=== PATIENT | male | born 1995 | race Caucasian/White ===

== ENCOUNTER 2020-06-17 21:37 | Inpatient (IN) | payer OTHER ==
[~2020-06-17] VITALS: Ht 177.8 cm; Wt 71.0 kg
[2020-06-17 22:13] LABS: BASOPHILS % (AUTO) 0 % (0-1); EOSINOPHILS % (AUTO) 1 % (1-7); LYMPHOCYTES % (AUTO) 6 % (22-44); MEAN CORPUSCULAR HGB CONC 33.7 g/dL (33.2-36.2); MEAN PLATELET VOLUME 7.7 fL (7.4-10.4); MONOCYTES % (AUTO) 4 % (2-9); NEUTROPHILS % (AUTO) 90 % (42-75); PLATELET COUNT 280 x10^3/uL (130-400); RED BLOOD COUNT 5.62 x10^6/uL (4.38-5.82); RED CELL DISTRIBUTION WIDTH 14.2 % (9.4-14.8)
[2020-06-17 22:17] LABS: MD NO
[2020-06-17 22:23] LABS: ALANINE AMINOTRANSFERASE 22 U/L (12-78); ALBUMIN 4.3 g/dL (3.4-5.0); ANION GAP 5 mmol/L (5-15); CALCIUM 9.5 mg/dL (8.5-10.1); CHLORIDE 103 mmol/L (98-107); CREATININE 0.98 mg/dL (0.7-1.3)
[2020-06-17 22:25] LABS: ALKALINE PHOSPHATASE 82 U/L (45-117); BILIRUBIN,TOTAL 0.7 mg/dL (0.2-1.0); TOTAL PROTEIN 8.4 g/dL (6.4-8.2)
--- NOTE | 2020-06-17 22:39 | NUR ---
PT TO ROOM FROM LOBBY
--- NOTE | 2020-06-17 22:45 | NUR ---
First contact with patient: patient presents to ER c/o upper abd pain and nausea since 1900 last night. Patient vomited twice. Patient has a hx of SBO with NG tube placement. Patient is in NAD. Respirations even and unlabored.
[2020-06-17] MEDS ORDERED: HYDROmorphone 1 MG/ML, 1ML INJ ONE (23:12)
[2020-06-17] MEDS ORDERED: ONDANSETRON 2MG/ML, 2ML ONE (23:12)
[2020-06-17 23:13] LABS: MICROSCOPIC INDICATED
[2020-06-17] MEDS ORDERED: HYDROmorphone 1 MG/ML, 1ML INJ IVPush PRN (23:30)
[2020-06-17] MEDS ORDERED: ONDANSETRON 2MG/ML, 2ML IVPush ONE (23:30)
--- NOTE | 2020-06-18 00:10 | NUR ---
NG tube inserted in L nare. 10F.
--- NOTE | 2020-06-18 01:30 | NUR ---
Report to DIONNA Holly. Patient care transferred.
[2020-06-18] MEDS ORDERED: HEPARIN 5,000 UNITS/ML, 1ML ONE (01:39)
[2020-06-18] MEDS: SODIUM CHLORIDE 0.9% 1,000 ML IV SCH ×2 (01:45→10:13)
[2020-06-18] MEDS: HEPARIN 5,000 UNITS/ML, 1ML SQ SCH ×3 (01:45→16:39)
--- NOTE | 2020-06-18 02:22 | NUR ---
pt resting in bed, pt on monitor with vss. pt medicated per mar. pt has no current complaints
--- NOTE | 2020-06-18 03:27 | NUR ---
Break RN: patient resting in [facility] with no complaints.
--- NOTE | 2020-06-18 04:31 | NUR ---
REPORT TO SURGERY
[2020-06-18] MEDS ORDERED: FENTANYL PF 250 MCG/5ML ONE ×2 (05:04→06:33)
[2020-06-18] MEDS ORDERED: BUPIVACAINE/PF-EPI 0.5% 1:200K ONE (05:15)
[2020-06-18] MEDS ORDERED: SUCCINYLCHOLINE 20 MG/ML, 10ML ONE (05:26)
[2020-06-18] MEDS ORDERED: BUPIVACAINE/PF-EPI 0.5% 1:200K INFIL ONE (05:53)
[2020-06-18] MEDS ORDERED: PROPOFOL 10 MG/ML, 20ML ONE (05:57)
[2020-06-18] MEDS ORDERED: ROCURONIUM 10MG/ML,5ML ONE (05:57)
[2020-06-18] MEDS ORDERED: DEXAMETHASONE 4 MG/ML, 5ML ONE (05:58)
[2020-06-18] MEDS ORDERED: ONDANSETRON 2MG/ML, 2ML ONE (05:58)
[2020-06-18] MEDS ORDERED: PROMETHAZINE 25 MG/ML, 1ML IVPush PRN (06:00)
[2020-06-18] MEDS ORDERED: hydrALAzine 20 MG/ML, 1ML IV PRN (06:00)
[2020-06-18] MEDS ORDERED: LORazepam 2 MG/ML, 1ML IVPush PRN (06:00)
[2020-06-18] MEDS ORDERED: ONDANSETRON 2MG/ML, 2ML IVPush PRN (06:00)
[2020-06-18] MEDS ORDERED: METHOCARBAMOL 1,000 MG in DEXTROSE 5% 100 ML IV PRN (06:00)
[2020-06-18] MEDS ORDERED: OXYcodone 5 MG/5 ML ORAL.SOL UDC PO PRN (06:00)
[2020-06-18] MEDS ORDERED: MEPERIDINE/PF 25MG/0.5ML IVPush PRN (06:00)
[2020-06-18] MEDS ORDERED: LABETALOL 5MG/ML, 20ML IV PRN (06:00)
[2020-06-18] MEDS ORDERED: SUGAMMADEX 200 MG/2 ML IVPush ONE (06:39)
[2020-06-18] MEDS ORDERED: CEFOTETAN 1 GM ONE ×2 (06:39)
[2020-06-18] MEDS: FENTANYL PF 100 MCG/2ML IV PRN ×2 (07:02→07:23)
[2020-06-18] MEDS ORDERED: FENTANYL PF 100 MCG/2ML ONE (07:06)
[2020-06-18] MEDS ORDERED: HYDROmorphone 1 MG/ML, 1ML INJ ONE (07:07)
[2020-06-18] MEDS: HYDROmorphone 1 MG/ML, 1ML INJ IVPush PRN ×3 (07:12→07:45)
[2020-06-18] MEDS ORDERED: HYDROmorphone 2 MG/ML, 1ML ONE (07:49)
[2020-06-18 08:45] VITALS: BP 145/83
[2020-06-18] MEDS ORDERED: SCOPOLAMINE 1MG PATCH TD ONE (10:07)
[2020-06-18] MEDS: ACETAMINOPHEN 325 MG TABLET PO SCH ×3 (10:11→22:39)
[2020-06-18] MEDS: SCOPOLAMINE 1MG PATCH TD SCH (10:12)
[2020-06-18] MEDS: ONDANSETRON 2MG/ML, 2ML IVPush PRN (10:20)
[2020-06-18 12:45] VITALS: BP 102/65
[2020-06-18] MEDS: morphine SULFATE 10 MG/ML, 1ML IVPush PRN ×3 (12:53→22:39)
[2020-06-18 19:38] VITALS: BP 112/63
[2020-06-18 23:45] VITALS: BP 123/81
[2020-06-19] MEDS: HEPARIN 5,000 UNITS/ML, 1ML SQ SCH ×2 (01:36→07:54)
[2020-06-19 03:21] VITALS: BP 114/72
[2020-06-19] MEDS: morphine SULFATE 10 MG/ML, 1ML IVPush PRN ×9 (03:32→23:35)
[2020-06-19] MEDS: ONDANSETRON 2MG/ML, 2ML IVPush PRN (03:55)
[2020-06-19] MEDS: ACETAMINOPHEN 325 MG TABLET PO SCH ×4 (04:10→22:30)
[2020-06-19 06:14] LABS: BASOPHILS % (AUTO) 0 % (0-1); EOSINOPHILS % (AUTO) 0 % (1-7); LYMPHOCYTES % (AUTO) 6 % (22-44); MEAN CORPUSCULAR HEMOGLOBIN 30.3 pg (27.5-34.5); MEAN CORPUSCULAR HGB CONC 33.6 g/dL (33.2-36.2); MEAN PLATELET VOLUME 8.3 fL (7.4-10.4); MONOCYTES % (AUTO) 7 % (2-9); NEUTROPHILS % (AUTO) 86 % (42-75); PLATELET COUNT 197 x10^3/uL (130-400); RED CELL DISTRIBUTION WIDTH 14.5 % (9.4-14.8)
[2020-06-19 06:19] LABS: MD NO
[2020-06-19 06:25] LABS: CHLORIDE 103 mmol/L (98-107)
[2020-06-19 06:30] LABS: ANION GAP 6 mmol/L (5-15); CALCIUM 8.9 mg/dL (8.5-10.1); CREATININE 0.81 mg/dL (0.7-1.3)
[2020-06-19 07:35] VITALS: BP 141/93
[2020-06-19] MEDS: PROCHLORPERAZINE 5 MG/ML, 2ML IM PRN ×2 (08:35→16:44)
[2020-06-19] MEDS: D5%-0.45NACL+KCL 20MEQ 1,000 ML IV SCH ×2 (12:28→21:59)
[2020-06-19 14:00] VITALS: BP 116/70
[2020-06-19 18:49] VITALS: BP 120/75
[2020-06-19] MEDS: ENOXAPARIN 40 MG/0.4 ML SQ SCH (20:22)
[2020-06-20 00:51] VITALS: BP 137/87
[2020-06-20] MEDS: morphine SULFATE 10 MG/ML, 1ML IVPush PRN ×6 (02:38→23:07)
[2020-06-20 05:30] LABS: BASOPHILS % (AUTO) 0 % (0-1); EOSINOPHILS % (AUTO) 2 % (1-7); LYMPHOCYTES % (AUTO) 11 % (22-44); MEAN CORPUSCULAR HEMOGLOBIN 30.5 pg (27.5-34.5); MEAN CORPUSCULAR HGB CONC 33.8 g/dL (33.2-36.2); MEAN PLATELET VOLUME 7.7 fL (7.4-10.4); MONOCYTES % (AUTO) 9 % (2-9); NEUTROPHILS % (AUTO) 78 % (42-75); PLATELET COUNT 212 x10^3/uL (130-400); RED BLOOD COUNT 4.84 x10^6/uL (4.38-5.82); RED CELL DISTRIBUTION WIDTH 14.1 % (9.4-14.8)
[2020-06-20 05:35] LABS: ALBUMIN 3.1 g/dL (3.4-5.0); ANION GAP 3 mmol/L (5-15); CALCIUM 9.1 mg/dL (8.5-10.1); CHLORIDE 104 mmol/L (98-107); CREATININE 0.92 mg/dL (0.7-1.3)
[2020-06-20] MEDS: ACETAMINOPHEN 325 MG TABLET PO SCH ×4 (05:35→22:35)
[2020-06-20 05:47] LABS: MD NO
[2020-06-20 07:55] VITALS: BP 137/65
[2020-06-20] MEDS: DOCUSATE 100 MG CAPSULE PO SCH ×2 (11:57→21:59)
[2020-06-20] MEDS: D5%-0.45NACL+KCL 20MEQ 1,000 ML IV SCH ×2 (12:56→23:11)
[2020-06-20] MEDS: PROCHLORPERAZINE 5 MG/ML, 2ML IM PRN (14:43)
[2020-06-20 14:50] VITALS: BP_SYST 105; BP_SYST 161; BP_DIAS 62; BP_DIAS 82
[2020-06-20] MEDS: OXYcodone/APAP 5/325MG TABLET PO PRN (17:30)
[2020-06-20 19:57] VITALS: BP 119/54
[2020-06-20] MEDS: ENOXAPARIN 40 MG/0.4 ML SQ SCH (22:03)
[2020-06-21] MEDS: OXYcodone/APAP 5/325MG TABLET PO PRN ×4 (01:09→20:25)
[2020-06-21 02:39] VITALS: BP 114/68
[2020-06-21] MEDS: ACETAMINOPHEN 325 MG TABLET PO SCH ×4 (05:41→23:30)
[2020-06-21 07:53] VITALS: BP 116/63
[2020-06-21] MEDS: DOCUSATE 100 MG CAPSULE PO SCH ×2 (08:50→20:25)
[2020-06-21] MEDS: D5%-0.45NACL+KCL 20MEQ 1,000 ML IV SCH ×2 (08:51→19:00)
[2020-06-21] MEDS: SCOPOLAMINE 1MG PATCH TD SCH (08:51)
[2020-06-21 13:05] VITALS: BP 119/75
[2020-06-21] MEDS: PROCHLORPERAZINE 5 MG/ML, 2ML IM PRN (20:24)
[2020-06-21] MEDS: ENOXAPARIN 40 MG/0.4 ML SQ SCH (20:26)
[2020-06-21] MEDS: morphine SULFATE 10 MG/ML, 1ML IVPush PRN (20:36)
[2020-06-21] MEDS: ONDANSETRON 2MG/ML, 2ML IVPush PRN (20:36)
[2020-06-21 21:06] VITALS: BP 145/85
[2020-06-22] MEDS ORDERED: DIPHENHYDRAMINE 50 MG/ML, 1ML ONE (00:09)
[2020-06-22] MEDS: PROCHLORPERAZINE 5 MG/ML, 2ML IM PRN ×2 (00:14→16:37)
[2020-06-22] MEDS ORDERED: DIPHENHYDRAMINE 50 MG/ML, 1ML IVPush PRN (00:30)
[2020-06-22] MEDS: morphine SULFATE 10 MG/ML, 1ML IVPush PRN (00:52)
[2020-06-22 01:33] VITALS: BP 147/83
[2020-06-22] MEDS: OXYcodone/APAP 5/325MG TABLET PO PRN ×4 (03:00→21:42)
[2020-06-22] MEDS: ACETAMINOPHEN 325 MG TABLET PO SCH ×4 (05:30→23:30)
[2020-06-22 08:00] VITALS: BP 132/76
[2020-06-22] MEDS: DOCUSATE 100 MG CAPSULE PO SCH ×2 (09:05→21:42)
[2020-06-22] MEDS: D5%-0.45NACL+KCL 20MEQ 1,000 ML IV SCH (09:06)
[2020-06-22 12:46] VITALS: BP 117/76
[2020-06-22 19:55] VITALS: BP 133/90
[2020-06-22] MEDS: ENOXAPARIN 40 MG/0.4 ML SQ SCH (21:43)
[2020-06-23 01:52] VITALS: BP 109/60
[2020-06-23] MEDS: OXYcodone/APAP 5/325MG TABLET PO PRN ×4 (03:46→22:50)
[2020-06-23] MEDS: ACETAMINOPHEN 325 MG TABLET PO SCH ×4 (05:30→23:30)
[2020-06-23 07:29] VITALS: BP 104/64
[2020-06-23] MEDS ORDERED: GLYCERIN ADULT SUPP PR PRN (10:00)
[2020-06-23] MEDS ORDERED: DOCUSATE 100 MG CAPSULE PO PRN (10:00)
[2020-06-23] MEDS ORDERED: POLYETHYLENE GLYCOL 17 GM PACKET PO PRN (10:00)
[2020-06-23] MEDS: DOCUSATE 100 MG CAPSULE PO SCH ×2 (10:38→21:25)
[2020-06-23 13:59] VITALS: BP 114/75
[2020-06-23 20:39] VITALS: BP 119/72
[2020-06-23] MEDS: ENOXAPARIN 40 MG/0.4 ML SQ SCH (21:26)
[2020-06-24 01:24] VITALS: BP 114/69
[2020-06-24] MEDS: ACETAMINOPHEN 325 MG TABLET PO SCH ×2 (04:40→09:43)
[2020-06-24 07:33] VITALS: BP 115/76
[2020-06-24] MEDS: DOCUSATE 100 MG CAPSULE PO SCH (07:52)
[2020-06-24] MEDS: OXYcodone/APAP 5/325MG TABLET PO PRN (07:52)
[2020-06-24] MEDS: SCOPOLAMINE 1MG PATCH TD SCH (09:42)
[2020-06-24] MEDS ORDERED: DOCU100C33 PO (10:01)
== END 2020-06-24 11:22 | disposition home or self-care (01) | DRG 331 ==
LOC: ED 06-18 00:45 → EDIP 06-18 01:10 → 4NE 06-18 08:35 → DCLOUNGE 06-24 11:14
PROVIDERS: ADMIT Family Medicine; ATTEND Hospitalist
PROC: 0DB80ZZ Excision of Small Intestine, Open Approach (ICD-10-PCS; 2020-06-18)
PROC: 0DJD4ZZ Inspection of Lower Intestinal Tract, Percutaneous Endoscopic Approach (ICD-10-PCS; principal; 2020-06-18 05:00)
DX: K56.52 Intestinal adhesions [bands] with complete obstruction (principal); D72.829 Elevated white blood cell count, unspecified; Z20.828 Contact with and (suspected) exposure to other viral communicable diseases; Z88.0 Allergy status to penicillin; Z87.730 Personal history of (corrected) cleft lip and palate; Z53.31 Laparoscopic surgical procedure converted to open procedure
CPT/HCPCS: 36415; 74021; 74176; 80048; 80053; 80069; 81001; 83690; 83735; 85025; 87635; 88307; 96374; 96375; 99285; G0378; J1100; J1170; J1644; J1650; J2405; J2704; J3010; J0330; J0780; J2270; J2800; J3480; J7030

== ENCOUNTER 2020-07-18 17:42 | Emergency (ER) | payer OTHER ==
[~2020-07-18] VITALS: Ht 177.8 cm; Wt 67.3 kg
[~2020-07-18 17:42] MED LIST: DOCU100C33 PO
[2020-07-18] MEDS ORDERED: ONDANSETRON 2MG/ML, 2ML ONE (18:02)
[2020-07-18] MEDS ORDERED: MORPHINE SULFATE 4 MG/ML, 1ML ONE (18:03)
--- NOTE | 2020-07-18 18:14 | NUR ---
PT CAME IN CO ABD PAIN. PT HAD BOWEL SURGERY May. "THERE WAS SCAR TISSUE BUILT UP IN MY BOWEL. THEY CUT OUT SOME OF MY BOWEL". TODAY AROUND 1700 PT HAD SEVERE LBP PAIN THAT RADIATES TO ABD. "IT FEELS LIKE IT DID BEFORE". PT 03/31 PAIN. VOMITTING. MEDICATED PER AUG. MD IS BEDSIDE FOR ASSESSMENT
[2020-07-18] MEDS ORDERED: HYDROmorphone 2 MG/ML, 1ML ONE (18:29)
[2020-07-18] MEDS ORDERED: SODIUM CHLORIDE 0.9% 1,000ML IVBOLUS ONE (18:30)
[2020-07-18] MEDS ORDERED: ONDANSETRON 2MG/ML, 2ML IVPush ONE (18:30)
[2020-07-18] MEDS ORDERED: SODIUM CHLORIDE FLUSH 10ML SYR IVF ONE (18:30)
[2020-07-18] MEDS ORDERED: MORPHINE SULFATE 4 MG/ML, 1ML IVPush PRN (18:30)
[2020-07-18] MEDS ORDERED: HYDROmorphone 2 MG/ML, 1ML IVPush PRN (18:30)
[2020-07-18 19:01] LABS: MEAN CORPUSCULAR HEMOGLOBIN 29.6 pg (27.5-34.5); MEAN CORPUSCULAR HGB CONC 33.9 g/dL (33.2-36.2); MEAN PLATELET VOLUME 7.8 fL (7.4-10.4); PLATELET COUNT 281 x10^3/uL (130-400); RED BLOOD COUNT 5.15 x10^6/uL (4.38-5.82); RED CELL DISTRIBUTION WIDTH 13.8 % (9.4-14.8)
[2020-07-18 19:10] LABS: ALBUMIN 4.2 g/dL (3.4-5.0); ANION GAP 9 mmol/L (5-15); CALCIUM 9.5 mg/dL (8.5-10.1); CHLORIDE 105 mmol/L (98-107)
[2020-07-18 19:14] LABS: ALANINE AMINOTRANSFERASE 23 U/L (12-78); ALKALINE PHOSPHATASE 63 U/L (45-117); BILIRUBIN,TOTAL 0.8 mg/dL (0.2-1.0); CREATININE 0.88 mg/dL (0.7-1.3); TOTAL PROTEIN 7.7 g/dL (6.4-8.2)
[2020-07-18 19:22] LABS: MD YES
[2020-07-18 19:24] LABS: <PLATELET ESTIMATE> ADEQUATE; EOS#(MANUAL) 0.13 x10^3/uL (0.0-0.4); EOS% (MANUAL) 1 % (1-7); LYMPH#(MANUAL) 2.41 x10^3/uL (1-3.4); LYMPHS% (MANUAL) 18 % (22-44); MONOS#(MANUAL) 0.27 x10^3/uL (0.3-2.7); MONOS% (MANUAL) 2 % (2-9); SEG#(MANUAL) 10.59 x10^3/uL (1.8-6.8); SEGS% (MANUAL) 79 % (42-75)
[2020-07-18 19:25] LABS: <PLT MORPHOLOGY> NORMAL PLT MORPH; <RBC MORPHOLOGY> NORMAL
[2020-07-18 20:07] LABS: MICROSCOPIC AUTO
[2020-07-18 20:47] VITALS: BP 135/79
== END 2020-07-18 20:49 | disposition home or self-care (01) ==
LOC: ED 19:28
DX: R10.84 Generalized abdominal pain (principal); M54.6 Pain in thoracic spine; R11.2 Nausea with vomiting, unspecified
CPT/HCPCS: 36415; 74021; 80053; 81001; 83690; 85025; 96374; 96375; 99284; J1170; J2270; J2405; J7030

== ENCOUNTER 2020-07-20 23:21 | Emergency (ER) | payer OTHER ==
[~2020-07-20] VITALS: Ht 177.8 cm; Wt 69.7 kg
[2020-07-20 23:25] VITALS: BP 131/85
--- NOTE | 2020-07-21 00:04 | NUR ---
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 STEADY UPON AMBULATION.
--- NOTE | 2020-07-21 00:49 | NUR ---
pt resting in bed no distress at this time. states he's got nausea.
[2020-07-21] MEDS ORDERED: ONDANSETRON ODT 4 MG ONE (01:29)
[2020-07-21] MEDS ORDERED: MAALOX/HYOSCYAMINE/LIDOCAINE 45 ML BTL ONE (01:29)
[2020-07-21] MEDS ORDERED: MAALOX/HYOSCYAMINE/LIDOCAINE 45 ML BTL PO ONE (01:30)
[2020-07-21] MEDS ORDERED: ONDANSETRON ODT 4 MG PO ONE (01:30)
[2020-07-21 01:45] LABS: BASOPHILS % (AUTO) 1 % (0-1); EOSINOPHILS % (AUTO) 1 % (1-7); LYMPHOCYTES % (AUTO) 10 % (22-44); MEAN CORPUSCULAR HEMOGLOBIN 29.9 pg (27.5-34.5); MEAN CORPUSCULAR HGB CONC 33.7 g/dL (33.2-36.2); MEAN PLATELET VOLUME 7.7 fL (7.4-10.4); MONOCYTES % (AUTO) 4 % (2-9); NEUTROPHILS % (AUTO) 85 % (42-75); PLATELET COUNT 256 x10^3/uL (130-400)
[2020-07-21 01:51] LABS: MD NO
[2020-07-21 01:57] LABS: ALANINE AMINOTRANSFERASE 24 U/L (12-78); ALBUMIN 4.1 g/dL (3.4-5.0); ANION GAP 6 mmol/L (5-15); CALCIUM 9.1 mg/dL (8.5-10.1); CHLORIDE 108 mmol/L (98-107); CREATININE 0.81 mg/dL (0.7-1.3)
[2020-07-21 01:59] LABS: ALKALINE PHOSPHATASE 60 U/L (45-117); BILIRUBIN,TOTAL 0.4 mg/dL (0.2-1.0); TOTAL PROTEIN 7.4 g/dL (6.4-8.2)
--- NOTE | 2020-07-21 02:08 | NUR ---
pt medicated, continues to say his lower back hurts. MD to room to evaluate.
== END 2020-07-21 02:50 | disposition home or self-care (01) ==
LOC: ED 07-21 01:54
DX: S29.012A Strain of muscle and tendon of back wall of thorax, initial encounter (principal); R11.0 Nausea; X58.XXXA Exposure to other specified factors, initial encounter; Y93.89 Activity, other specified; Y92.89 Other specified places as the place of occurrence of the external cause; Y99.8 Other external cause status
CPT/HCPCS: 36415; 71045; 80053; 83690; 85025; 99284

== ENCOUNTER → 2020-08-02 | Outpatient (CLI) | payer OTHER ==
[~2020-08-02] MED LIST changes: +OMNIPAQUE 350 MG/ML, 100ML BOTTLE ONE
== END | disposition home or self-care (01) ==
LOC: CFH 10:10
PROVIDERS: ATTEND Surgery
DX: K56.699 Other intestinal obstruction unspecified as to partial versus complete obstruction (principal)
CPT/HCPCS: 74177; Q9967